=== PATIENT | male | born 1990 | race Two or more races ===

== ENCOUNTER 2021-06-21 14:12 | Emergency (ER) | payer SELFPAY ==
[~2021-06-21] VITALS: Ht 185.4 cm; Wt 104.5 kg
[2021-06-21 14:25] LABS: BASO # 0.1 x10^3/uL (0.0-0.2); BASO % 1 % (0-3); EOS # 0.1 x10^3/uL (0.0-0.7); EOS % 2 % (0-3); HEMATOCRIT 43.2 % (39.0-53.0); HEMOGLOBIN 15.2 g/dL (13.0-17.5); LYMPH # 5.2 x10^3/uL (1.0-4.8); LYMPH % 65 % (24-48); MEAN CORPUSCULAR HEMOGLOBIN 32 pg (25-35); MEAN CORPUSCULAR HGB CONC 35 g/dL (31-37); MEAN CORPUSCULAR VOLUME 92 fL (79-100); MONO # 0.8 x10^3/uL (0.0-1.1); MONO % 10 % (0-9); NEUT # 1.8 x10^3/uL (1.8-7.7); NEUT % 22 % (31-73); PLATELET COUNT 179 x10^3/uL (140-400); RED BLOOD COUNT 4.72 x10^6/uL (4.30-5.70); RED CELL DISTRIBUTION WIDTH 13.5 % (11.5-14.5)
[2021-06-21] MEDS ORDERED: MORPHINE SULFATE 4 MG/ML INJ. IM ONE (14:45)
[2021-06-21 14:46] LABS: CALCIUM 8.5 mg/dL (8.5-10.1); CREATININE 1.2 mg/dL (0.7-1.3); GFR 70.6; POTASSIUM 3.4 mmol/L (3.5-5.1)
[2021-06-21 14:53] LABS: ALBUMIN 3.7 g/dL (3.4-5.0); TOTAL BILIRUBIN 0.2 mg/dL (0.2-1.0); TOTAL PROTEIN 7.5 g/dL (6.4-8.2)
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
[2021-06-21] MEDS ORDERED: IOHEXOL 350 MG/ML 100 ML VIAL. IV ONE (15:00)
[2021-06-21] MEDS ORDERED: CONTRAST GIVEN. MC PRN (15:15)
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
[2021-06-21] MEDS ORDERED: HYDR-2759 PO ×2 (16:17→16:38)
[2021-06-21] MEDS ORDERED: CEPH750C9 PO (16:17)
[2021-06-21 17:26] VITALS: BP 174/109
== END 2021-06-21 17:15 | disposition home or self-care (01) ==
LOC: ER 14:12
DX: S71.131A Puncture wound without foreign body, right thigh, initial encounter (principal); F17.200 Nicotine dependence, unspecified, uncomplicated; X95.8XXA Assault by other firearm discharge, initial encounter; Y93.89 Activity, other specified; Y92.89 Other specified places as the place of occurrence of the external cause; Y99.8 Other external cause status
CPT/HCPCS: 36415; 73552; 73706; 80053; 85025; 96365; 96372; 99285; J0690; J2270; Q9967